=== PATIENT | female | born 1985 | race Caucasian/White ===

== ENCOUNTER → 2016-08-21 | Outpatient (REF) | payer BC | LOC: M SFHCWAGY 15:40 | PROVIDERS: ATTEND Nurse Practitioner Women's Health | DX: Z12.4 Encounter for screening for malignant neoplasm of cervix (principal) ==

== ENCOUNTER → 2016-10-13 | Outpatient (REF) | payer BC | LOC: M SFHCWAGY 15:23 | PROVIDERS: ATTEND Nurse Practitioner Women's Health | DX: N93.0 Postcoital and contact bleeding (principal); N94.10 Unspecified dyspareunia ==

== ENCOUNTER → 2016-11-26 | Outpatient (REF) | payer BC | LOC: M SFHCWAGY 13:45 | PROVIDERS: ATTEND Nurse Practitioner Family | DX: N89.8 Other specified noninflammatory disorders of vagina (principal) ==

== ENCOUNTER → 2017-03-26 | Outpatient (REF) | payer BC, SELFPAY | LOC: M LAB REF 08:34 | PROVIDERS: ATTEND Physician Assistant | DX: J02.9 Acute pharyngitis, unspecified (principal) ==

== ENCOUNTER → 2017-06-23 | Outpatient (REF) | payer BC ==
[2017-06-23 22:16] LABS: APPEARANCE, URINE CLOUDY (CLEAR); BACTERIA, URINE AUTO 3+ (NEGATIVE); BILIRUBIN, URINE AUTO NEGATIVE (NEGATIVE); BLOOD, URINE BLOOD NEGATIVE (NEGATIVE); COLOR, URINE AMBER (YELLOW); GLUCOSE, URINE (UA) AUTO NEGATIVE (NEGATIVE); KETONE, URINE AUTO NEGATIVE (NEGATIVE); LEUKOCYTE ESTERASE, URINE AUTO 2+ (NEGATIVE); MUCUS, URINE SMALL (NEGATIVE); NITRITE, URINE AUTO POSITIVE (NEGATIVE); PROTEIN, URINE AUTO 1+ mg/dL (NEGATIVE); RBC, URINE AUTO 5 /HPF (0-3); SPECIFIC GRAVITY URINE AUTO 1.027 (1.002-1.035); SQUAMOUS EPITHELIAL CELL UR AU 4 /HPF (0-6); WBC, URINE AUTO TNTC /HPF (0-3)
== END ==
LOC: M LAB REF 09:30
DX: N39.0 Urinary tract infection, site not specified (principal)
CPT/HCPCS: 81001

== ENCOUNTER → 2017-08-25 | Outpatient (REF) | payer BC | LOC: M SFHCWAGY 15:57 | DX: Z12.4 Encounter for screening for malignant neoplasm of cervix (principal) | CPT/HCPCS: G0123 ==

== ENCOUNTER 2017-12-22 12:29 | Emergency (ER) | payer BC ==
[2017-12-22] MEDS: NS 1,000 ML IV (13:21)
[2017-12-22 13:28] LABS: BASO % 0.5 % (0.0-1.0); EOS % 0.5 % (0.0-3.0); HEMATOCRIT 43.4 % (36.0-47.0); HEMOGLOBIN 14.8 g/dl (12.0-15.5); IMMATURE GRANULOCYTE % 0.3 % (0-3.0); LYMPH # 1.3 10^3/uL (1.5-4.5); LYMPH % 14.8 % (24.0-44.0); MEAN CORPUSCULAR HEMOGLOBIN 33.6 pg (27.0-33.0); MEAN CORPUSCULAR HGB CONC 34.1 g/dl (32.0-36.5); MEAN CORPUSCULAR VOLUME 98.6 fl (80.0-96.0); MONO # 0.8 10^3/uL (0.0-0.8); MONO % 9.7 % (0.0-5.0); NEUTROPHILS # 6.4 10^3/uL (1.8-7.7); NEUTROPHILS % 74.2 % (36.0-66.0); PLATELET COUNT, AUTOMATED 174 10^3/uL (150-450); RED CELL DISTRIBUTION WIDTH 11.8 % (11.5-14.5); WHITE BLOOD COUNT 8.6 10^3/uL (4.0-10.0)
[2017-12-22 13:38] LABS: KETONE, URINE AUTO RFX NEGATIVE (NEGATIVE); MUCUS, URINE RFX SMALL (NEGATIVE); NITRITE, URINE AUTO RFX NEGATIVE (NEGATIVE); RBC, URINE AUTO RFX 2 /HPF (0-3); SPECIFIC GRAVITY UR AUTO RFX 1.021 (1.002-1.035); SQUAM EPITHELIAL CELL UR AURFX 24 /HPF (0-6); WBC, URINE AUTO RFX 6 /HPF (0-3)
[2017-12-22 13:50] LABS: LEUKOCYTE ESTERASE UR AUTO RFX TRACE (NEGATIVE)
[2017-12-22 14:08] LABS: LACTIC ACID SEPSIS PROTOCOL 0.9 MMOL/L (0.4-2.0)
[2017-12-22 14:24] LABS: ALBUMIN 4.1 GM/DL (3.2-5.2); ALBUMIN/GLOBULIN RATIO 1.41 (1.00-1.93); ALKALINE PHOSPHATASE 56 U/L (45-117); ALT/SGPT 48 U/L (12-78); ANION GAP 8 MEQ/L (8-16); AST/SGOT 35 U/L (7-37); BLOOD UREA NITROGEN 10 MG/DL (7-18); CARBON DIOXIDE LEVEL 28 MEQ/L (21-32); CHLORIDE LEVEL 106 MEQ/L (98-107); GLOMERULAR FILTRATION RATE > 60.0 (>60); GLUCOSE, FASTING 70 MG/DL (70-100); HCG, SERUM QUANTITATIVE < 1.0 MIU/ML; POTASSIUM SERUM 4.5 MEQ/L (3.5-5.1); SODIUM LEVEL 142 MEQ/L (136-145)
[2017-12-22 15:05] LABS: CONTROL LINE UCG INT CTR LINE PRESENT; URINE PREG TEST NEGATIVE (NEGATIVE)
[2017-12-22] MEDS: EXCEDRIN MIGRAINE TABLET PO (15:48)
[2017-12-22 16:19] LABS: CHLAMYDIA DNA AMPLIFICATION NEGATIVE (NEGATIVE); GC DNA AMPLIFICATION NEGATIVE (NEGATIVE)
== END 2017-12-22 16:27 | disposition home or self-care (01) ==
LOC: M ED 12:29
DX: J02.8 Acute pharyngitis due to other specified organisms (principal)
CPT/HCPCS: 76856

== ENCOUNTER → 2018-03-03 | Outpatient (CLI) | payer BC ==
[2018-03-03 18:16] LABS: BASO % 0.4 % (0.0-1.0); EOS # 0.1 10^3/uL (0.0-0.50); EOS % 0.5 % (0.0-3.0); HEMOGLOBIN 13.2 g/dl (12.0-15.5); IMMATURE GRANULOCYTE % 0.5 % (0-3.0); LYMPH # 2.2 10^3/uL (1.5-4.5); LYMPH % 19.9 % (24.0-44.0); MEAN CORPUSCULAR HGB CONC 33.8 g/dl (32.0-36.5); MEAN CORPUSCULAR VOLUME 97.5 fl (80.0-96.0); MONO # 0.8 10^3/uL (0.0-0.8); MONO % 7.5 % (0.0-5.0); NEUTROPHILS # 7.9 10^3/uL (1.8-7.7); NEUTROPHILS % 71.2 % (36.0-66.0); PLATELET COUNT, AUTOMATED 197 10^3/uL (150-450); RED CELL DISTRIBUTION WIDTH 11.5 % (11.5-14.5); WHITE BLOOD COUNT 11.1 10^3/uL (4.0-10.0)
[2018-03-03 19:42] LABS: CHLAMYDIA DNA AMPLIFICATION NEGATIVE (NEGATIVE); GC DNA AMPLIFICATION NEGATIVE (NEGATIVE)
[2018-03-05 11:17] LABS: HBsAg Prenatal NEGATIVE (NEGATIVE); HIV 1&2 SCREEN CENTAUR NEGATIVE (NEGATIVE); RUBELLA IgG QUALITATIVE IMMUNE (IMMUNE)
[2018-03-05 11:17] LABS: HEPATITIS C VIRUS ABY INDEX 0.1 INDEX (<0.8)
== END ==
LOC: M SMT 15:12
DX: Z34.81 Encounter for supervision of other normal pregnancy, first trimester (principal); Z3A.08 8 weeks gestation of pregnancy
CPT/HCPCS: 86762

== ENCOUNTER → 2018-03-15 | Outpatient (CLI) | payer BC | LOC: M SMT 15:45 | DX: Z36.89 Encounter for other specified antenatal screening (principal) | CPT/HCPCS: 36415 ==

== ENCOUNTER → 2018-03-31 | Outpatient (REF) | payer BC ==
[~2018-03-31] MED LIST: CIPR-249 PO; METR70GEL
== END ==
LOC: M LAB REF 17:08
PROVIDERS: ATTEND Advanced Practice Midwife
DX: Z34.81 Encounter for supervision of other normal pregnancy, first trimester (principal)

== ENCOUNTER → 2018-04-08 | Outpatient (REF) | payer BC | LOC: M LAB REF 16:24 | PROVIDERS: ATTEND Physician Assistant | DX: J06.9 Acute upper respiratory infection, unspecified (principal) ==

== ENCOUNTER → 2018-05-10 | Outpatient (CLI) | payer BC ==
--- NOTE | 2018-05-11 04:34 | REP ---
Clinical: Anatomical evaluation. Comparison: None . Findings: Examination demonstrates a single live intrauterine in variable presentation. motion is identified by technologist. Placenta is noted anterior and grade zero without evidence for placenta previa or abruption. Amniotic fluid volume is normal. Cervix measures 4.2 cm in length and appears closed. No evidence for nuchal cord. Gestational age by LMP 18 weeks 1 day with BRONWYN 10/10/2018 . Gestational age by current measurements 18 weeks 3-day with BRONWYN 10/08/2018 . FHR equals 157 beats per minute. BPD 4.2 cm 18 weeks 5-day HC 15.5 cm 18 weeks 3-day AC 12.9 cm 18 weeks 3 days FL 2.8 cm 18 weeks 3-day HL 2.7 cm 18 weeks 4 days HC/AC ratio 1.20 Estimated weight 241 grams ( 61st percentile). Anatomical assessment demonstrates normal structures including cranium, choroid plexus, cavum, cerebellum/posterior fossa, facial features, lungs, diaphragm, stomach, cord insertion/three-vessel cord, kidneys/bladder, spine, and extremities. Impression: Single live intrauterine in variable presentation demonstrating appropriate interval growth. Limited evaluation of the heart/ventricular outflow tracts noted. Remainder of the anatomical assessment is complete and normal. Electronically Signed by Michael Stiles MD 05/11/2018 04:25 A
== END ==
LOC: M RAD 16:02
PROVIDERS: ATTEND Advanced Practice Midwife
DX: Z34.82 Encounter for supervision of other normal pregnancy, second trimester (principal)

== ENCOUNTER → 2018-06-14 | Outpatient (CLI) | payer BC ==
--- NOTE | 2018-06-15 02:57 | REP ---
Clinical: Anatomical evaluation. Comparison: 05/10/2018 . Findings: Examination demonstrates a single live intrauterine in cephalic presentation. motion is identified by technologist. Placenta is noted anterior and grade grade zero without evidence for placenta previa or abruption. Amniotic fluid volume is normal. Cervix measures 4.2 cm in length and appears closed. No evidence for nuchal cord. Gestational age by LMP 23 weeks 1 day with BRONWYN 10/10/2018 . Gestational age by current measurements 23 weeks 1 day with BRONWYN 10/10/2018 . FHR equals 150 beats per minute. BPD 5.6 cm 23 weeks 1 day HC 20.9 cm 23 weeks 0 days AC 17.5 cm 22 weeks 3 days FL 4.2 cm 23 weeks 5 days HL 3.9 cm 23 weeks 6 days HC/AC ratio 1.20 Estimated weight 553 grams ( 42nd percentile). Anatomical assessment demonstrates normal structures including four-chamber heart/ventricular outflow tracts and stomach. Impression: Single live intrauterine in cephalic presentation demonstrating appropriate interval growth. In conjunction with prior examination anatomical assessment is complete and normal. Electronically Signed by Michael Stiles MD 06/15/2018 02:49 A
== END ==
LOC: M RAD 16:34
PROVIDERS: ATTEND Specialist
DX: Z34.80 Encounter for supervision of other normal pregnancy, unspecified trimester (principal); Z3A.23 23 weeks gestation of pregnancy

== ENCOUNTER → 2018-07-12 | Outpatient (CLI) | payer BC ==
[2018-07-12 13:40] LABS: BASO # 0.1 10^3/uL (0.0-0.2); BASO % 0.6 % (0.0-1.0); EOS # 0.1 10^3/uL (0.0-0.50); EOS % 0.5 % (0.0-3.0); HEMATOCRIT 36.9 % (36.0-47.0); HEMOGLOBIN 12.5 g/dl (12.0-15.5); LYMPH # 1.8 10^3/uL (1.5-4.5); LYMPH % 16.8 % (24.0-44.0); MEAN CORPUSCULAR HEMOGLOBIN 34.2 pg (27.0-33.0); MEAN CORPUSCULAR HGB CONC 33.9 g/dl (32.0-36.5); MEAN CORPUSCULAR VOLUME 101.1 fl (80.0-96.0); MONO # 0.5 10^3/uL (0.0-0.8); MONO % 4.9 % (0.0-5.0); NEUTROPHILS % 74.6 % (36.0-66.0); PLATELET COUNT, AUTOMATED 145 10^3/uL (150-450); RED BLOOD COUNT 3.65 10^6/uL (4.00-5.40); WHITE BLOOD COUNT 10.7 10^3/uL (4.0-10.0)
== END ==
LOC: M LAB 12:11
PROVIDERS: ATTEND Advanced Practice Midwife
DX: Z34.82 Encounter for supervision of other normal pregnancy, second trimester (principal); Z3A.00 Weeks of gestation of pregnancy not specified

== ENCOUNTER → 2018-08-19 | Outpatient (REF) | payer BC, OTHER ==
[~2018-08-19] MED LIST changes: +MULTTAB20 PO; +ZANT150T40 PO
== END ==
LOC: M LAB REF 12:29
PROVIDERS: ATTEND Physician Assistant
DX: J02.9 Acute pharyngitis, unspecified (principal)

== ENCOUNTER → 2018-09-06 | Outpatient (REF) | payer OTHER ==
[~2018-09-06] MED LIST changes: -ZANT150T40 PO; +ZANTTAB PO
== END ==
LOC: M LAB REF 17:05
PROVIDERS: ATTEND Advanced Practice Midwife
DX: O26.893 Other specified pregnancy related conditions, third trimester (principal); Z3A.00 Weeks of gestation of pregnancy not specified

== ENCOUNTER → 2018-09-15 | Outpatient (REF) | payer BC, OTHER | LOC: M LAB REF 16:57 | PROVIDERS: ATTEND Advanced Practice Midwife | DX: Z34.83 Encounter for supervision of other normal pregnancy, third trimester (principal); Z3A.00 Weeks of gestation of pregnancy not specified ==

== ENCOUNTER → 2018-09-23 | Outpatient (CLI) | payer OTHER ==
[~2018-09-23] MED LIST changes: -MULTTAB20 PO; -ZANTTAB PO
== END ==
LOC: M LAB 14:01
PROVIDERS: ATTEND Advanced Practice Midwife
DX: Z34.83 Encounter for supervision of other normal pregnancy, third trimester (principal); Z3A.00 Weeks of gestation of pregnancy not specified

== ENCOUNTER 2018-10-03 06:58 | Inpatient (IN) | payer OTHER ==
[~2018-10-03] VITALS: Ht 162.6 cm; Wt 77.7 kg
[2018-10-03] VITALS (37 sets, daily range): BP systolic 94–165; BP diastolic 50–100
[2018-10-03] MEDS ORDERED: MULTTAB20 PO (07:20)
[2018-10-03] MEDS ORDERED: ZANT150T40 PO (07:20)
[2018-10-03] MEDS ORDERED: LACTATED RINGER'S 1000 ML IV STA (07:54)
--- NOTE | 2018-10-03 08:05 | NUR ---
L&D H&P HPI: 33 year old at 39+ weeks estimated gestation. Expected date of confinement: 10/10/18. dated by LMP c/w first TM US. Presents today for scheduled elective IOL. Denies vaginal bleeding, loss of fluid, or uterine contractions. Reports regular movement. course uncomplicated thus far. labs: Blood type O, antibody screen negative, rubella immune, VDRL nonreactive , hepatitis B surface antigen negative, HIV negative, hepatitis C antibody negative, GC/CT negative, aneuploidy/maternal serum screening: Low risk XX (Panorama), 1 hour glucose challenge test: 113, GBS negative. Vaccinations: Tdap 08/04/18 Radiology/OB US: no anomalies or placental abnormalities detected. History Past medical history: none Surgical history: LEEP, Right shoulder/ortho Medications: PNV Allergies: Sulfa MEDICAL INSTRUCTOR history: H/o dysplasia, Last Pap NILM, no other STI/gHSV OB history: G1: 05/2009, 40+2 weeks, IOL Social history: no t/e/d (former smoker) Family history: DM, cardiovascular disease Objective Vitals: Normotensive, normal heart rate, afebrile Heart: Regular rate and rhythm. No murmurs, rubs or gallops. Lungs: Clear to auscultation bilaterally. No wheezes, crackles, rales or rhonchi. Abdomen: Uterine fundal height consistent with dates. No guarding or rebound tenderness. Extremities: No clubbing, cyanosis or edema. Normal deep tendon reflexes. Sterile vaginal exam: 2-3 cm, 75 %effacement, -3 station, cephalic, intact External monitoring: heart rate category 1 Tocodynamometer: contractions occurring irregularly Assessment/Plan 33 year old at 39+ weeks gestation. Diagnosis: Full term gestation, elective IOL. Favorable cervix. Reassuring and maternal status. -Admit to labor and delivery with routine labs and orders -External monitoring and tocodynamometer -Pediatrics and anesthesia consultations as needed. -Pitocin IOL. Dr. Aniceto Tejada, DO, FACOG
[2018-10-03 08:08] LABS: HEMATOCRIT 39.9 % (36.0-47.0); HEMOGLOBIN 13.6 g/dl (12.0-15.5); MEAN CORPUSCULAR HEMOGLOBIN 34.4 pg (27.0-33.0); MEAN CORPUSCULAR HGB CONC 34.1 g/dl (32.0-36.5); PLATELET COUNT, AUTOMATED 131 10^3/uL (150-450); RED BLOOD COUNT 3.95 10^6/uL (4.00-5.40); WHITE BLOOD COUNT 10.6 10^3/uL (4.0-10.0)
[2018-10-03] MEDS: LR 1,000 ML IV SCH ×2 (08:14→15:19)
[2018-10-03] MEDS ORDERED: OXYTOCIN DRIP 30 UNITS in APPROPRIATE DILUENT 1 EA IV SCH ×2 (08:30→19:27)
[2018-10-03] MEDS ORDERED: BUTORPHANOL 2 MG/ML INJ (J0595) As Ordered ONE (15:10)
[2018-10-03] MEDS ORDERED: PROMETHAZINE INJ 25 MG/ML VIAL (J2550) As Ordered ONE (15:11)
[2018-10-03] MEDS ORDERED: BUTORPHANOL 2 MG/ML INJ (J0595) IV ONE (15:15)
[2018-10-03] MEDS ORDERED: PROMETHAZINE INJ 25 MG/ML VIAL (J2550) IV ONE (15:15)
[2018-10-03] MEDS ORDERED: FENTANYL 2MCG/ML ROPIVACAINE 0.2% IN 0.9% NACL 100ML IVBAG As Ordered ONE (16:51)
[2018-10-03] MEDS ORDERED: REFRIGERATOR IV KEYS XX PRN (18:15)
[2018-10-03] MEDS ORDERED: EPIDURAL/PCA KEYS XX PRN (18:15)
[2018-10-03] MEDS ORDERED: EPIDURAL COMMENT XX SCH (18:15)
[2018-10-03] MEDS ORDERED: NALOXONE INJ 0.4 MG/1 ML VIAL (J2310) IV PRN (18:15)
[2018-10-03] MEDS ORDERED: FENTANYL/ROPIVACAINE/NACL BAG 100 ML EPIDURAL SCH (18:15)
[2018-10-03] MEDS ORDERED: LACTATED RINGER'S 1000 ML IV PRN (18:15)
[2018-10-03] MEDS ORDERED: ePHEDrine SULFATE 25 MG/5 ML(5MG/ML) SYRINGE IV PRN (18:15)
[2018-10-03] MEDS ORDERED: ONDANSETRON 4MG/2ML VIAL (J2405) IV PRN ×2 (18:15→19:30)
[2018-10-03] MEDS ORDERED: diphenhydrAMINE INJ 50MG/ML VIAL (J1200) IV PRN (18:15)
[2018-10-03] MEDS ORDERED: LR 1,000 ML IV SCH (19:27)
[2018-10-03] MEDS ORDERED: IBUPROFEN 600 MG TAB PO PRN (19:30)
[2018-10-03] MEDS ORDERED: ACETAMINOPHEN TAB 650MG DOSE (2X325MG) PO PRN (19:30)
[2018-10-03] MEDS ORDERED: PROMETHAZINE 25 MG TAB PO PRN (19:30)
[2018-10-03] MEDS ORDERED: RHOGAM 300 MCG (1500 IU) INJ (J2790) IM SCH (19:30)
[2018-10-03] MEDS ORDERED: DIBUCAINE 1% OINTMENT 30GM TOP PRN (19:30)
[2018-10-03] MEDS ORDERED: MEASLES,MUMPS,RUBELLA VACCINE INJ (MMR-II) (90707) SC SCH (19:30)
[2018-10-03] MEDS ORDERED: DOCUSATE SODIUM 100 MG CAP PO PRN (19:30)
--- NOTE | 2018-10-03 19:32 | NUR ---
Delivery note Spontaneous vaginal delivery Estimated gestational age at delivery: 39+0 weeks The active phase and second stage of labor progressed in normal fashion with epidural anesthesia. Patient received Pitocin labor augmentation. The head delivered left occiput anterior and restituted left occiput transverse. No nuchal cord was noted. The anterior shoulder delivered with gentle downward guidance and the remainder of the body delivered with ease. Cord clamping was delayed for approximately 1 minute after delivery. After doubly clamping the cord, I allowed the FOB to cut the cord. The was placed on the patient's chest for immediate bonding. [place] data: Apgars 8 and 9. weight 3450 grams 7 pounds, 10 ounces. Time of delivery: 1911. Sex: Female. Shae. The third stage of labor was actively managed with a bolus of IV Pitocin (30 units in 500 mL of normal saline). The placenta delivered completely intact with no missing cotyledons at 1918. A three-vessel cord with a central insertion was noted. After delivery of the placenta, the uterine fundus was approximately 2 cm below the umbilicus and firm. IV Pitocin was continued to maintain uterine tone. A normal, low level of uterine bleeding was noted. The cervix, vagina, vulva and perineum were inspected for lacerations. No laceration was noted. Excellent hemostasis was noted. Estimated blood loss: 300mL. All sponges, needles, and instruments were accounted for per [facility] department protocol. Aniceto Tejada D.O., F.Ivy.Rosa.
[2018-10-04 06:00] VITALS: BP 105/73
[2018-10-04] MEDS: ACETAMINOPHEN 500 MG TAB PO PRN ×2 (06:06→13:47)
[2018-10-04] MEDS: IBUPROFEN 800 MG TAB PO PRN ×2 (08:08→20:02)
--- NOTE | 2018-10-04 08:21 | NUR ---
Day 1 Status post , uncomplicated Subjective Pain is well controlled. Lochia decreasing and minimal. Voiding spontaneously. Tolerating a regular diet. Ambulating without any assistance. Denies any subjective fever/chills/nausea/vomiting/headache/visual changes/shortness of breath/chest pain. Breast feeding. Objective Vitals: Normotensive, normal heart rate, afebrile, adequate urine output. Heart: regular, rate, and rhythm. no murmurs/gallops/rubs Lungs: clear to auscultation bilaterally, no wheezes/crackles/rales/ronchi Abd: soft, nontender, nondistended, uterine fundus is 2cm below umbilicus and firm Ext: no significant edema, nontender, negative Ankur's bilaterally. Assessment/Plan: day 1. Recovering well. Hemodynamically stable, afebrile, good pain control. -Routine care -Discharge to home tomorrow. -Routine infectious, fever, pain, and bleeding precautions reviewed Warren Sandra.O., F.A.C.O.G
[2018-10-04] MEDS ORDERED: PRENATAL VITAMINS CHEWABLE TABLET PO SCH (09:00)
== END 2018-10-04 21:25 | disposition home or self-care (01) | DRG 560 ==
LOC: M LDI 06:58 → M OBS 22:00
PROVIDERS: ADMIT Obstetrics & Gynecology; ATTEND Obstetrics & Gynecology
PROC: 10E0XZZ Delivery of Products of Conception, External Approach (ICD-10-PCS; principal; 2018-10-03)
PROC: 3E033VJ Introduction of Other Hormone into Peripheral Vein, Percutaneous Approach (ICD-10-PCS; 2018-10-03)
DX: O80 Encounter for full-term uncomplicated delivery (principal); Z3A.39 39 weeks gestation of pregnancy; Z37.0 Single live birth

== ENCOUNTER → 2019-01-26 | Outpatient (REF) | payer OTHER, MEDICAID ==
[~2019-01-26] MED LIST changes: +MULTTAB20 PO; +PREVTAB2 PO; +ZANT150T40 PO
[2019-01-26 17:03] LABS: APPEARANCE, URINE MANUAL HAZY (CLEAR); BILIRUBIN, URINE MANUAL OBSCURED (NEGATIVE); BLOOD URINE MANUAL OBSCURED (NEGATIVE); COLOR, URINE MANUAL ORANGE (YELLOW); GLUCOSE, URINE (UA) MANUAL OBSCURED mg/dL (NEGATIVE); KETONE, URINE MANUAL OBSCURED mg/dL (NEGATIVE); LEUKOCYTE ESTERASE, URINE MAN OBSCURED (NEGATIVE); NITRITE, URINE MANUAL OBSCURED (NEGATIVE); PROTEIN, URINE MANUAL OBSCURED mg/dL (NEGATIVE); UROBILINOGEN, URINE MANUAL OBSCURED mg/dl (NORMAL)
[2019-01-26 17:04] LABS: BACTERIA, URINE MOD AMOUNT; HYALINE CAST, URINE NONE SEEN /lpf (0-1); SQUAMOUS EPITHELIAL CELL URINE LARGE AMOUNT /hpf (SMALL AMT); WBC, URINE TNTC /hpf (0-3)
== END ==
LOC: M LAB REF 16:26
PROVIDERS: ATTEND Physician Assistant
DX: N39.0 Urinary tract infection, site not specified (principal)

== ENCOUNTER 2019-02-11 08:05 | Day surgery (SDC) | payer OTHER ==
[~2019-02-11] VITALS: Ht 162.6 cm; Wt 64.9 kg
[~2019-02-11 08:05] MED LIST changes: +LR 1,000 ML IV ONE
[2019-02-11 08:32] LABS: HEMATOCRIT 46.4 % (36.0-47.0); HEMOGLOBIN 15.5 g/dl (12.0-15.5); MEAN CORPUSCULAR HEMOGLOBIN 33.5 pg (27.0-33.0); MEAN CORPUSCULAR HGB CONC 33.4 g/dl (32.0-36.5); MEAN CORPUSCULAR VOLUME 100.4 fl (80.0-96.0); PLATELET COUNT, AUTOMATED 199 10^3/uL (150-450); RED BLOOD COUNT 4.62 10^6/uL (4.00-5.40); WHITE BLOOD COUNT 5.9 10^3/uL (4.0-10.0)
[2019-02-11 08:41] LABS: HCG, SERUM QUALITATIVE NEGATIVE (NEGATIVE)
[2019-02-11] MEDS ORDERED: dexameTHASONE 4 MG/ML 1ML VIAL (J1100) As Ordered ONE (09:26)
[2019-02-11] MEDS ORDERED: KETOROLAC 60 MG/2 ML VIAL (J1885) As Ordered ONE (09:26)
[2019-02-11] MEDS ORDERED: PROPOFOL 200 MG/20 ML VIAL As Ordered ONE (09:26)
[2019-02-11] MEDS ORDERED: LIDOCAINE 2% INJ 100 MG/5 ML SDV (FOR ANES.) As Ordered ONE (09:26)
[2019-02-11] MEDS ORDERED: ONDANSETRON 4MG/2ML VIAL (J2405) As Ordered ONE (09:27)
[2019-02-11] MEDS ORDERED: ROCURONIUM BROMIDE 50 MG/5 ML VIAL As Ordered ONE (09:27)
[2019-02-11] MEDS ORDERED: BUPIVACAINE HCL 0.25% 30 ML VIAL As Ordered ONE (11:27)
[2019-02-11] MEDS ORDERED: MIDAZOLAM INJ 2 MG/2 ML VIAL (J2250) As Ordered ONE (11:36)
[2019-02-11] MEDS ORDERED: fentaNYL 250 MCG/5 ML INJECTION (J3010) As Ordered ONE (11:36)
[2019-02-11] MEDS ORDERED: METOCLOPRAMIDE INJ 10MG/2ML VIAL (J2765) As Ordered ONE (11:57)
[2019-02-11] MEDS ORDERED: SUGAMMADEX SODIUM 500 MG/5 ML VIAL (BRIDION) As Ordered ONE (12:05)
[2019-02-11] MEDS ORDERED: GLYCOPYRROLATE INJ 0.2 MG/ML 2 ML VIAL As Ordered ONE (12:30)
[2019-02-11] MEDS ORDERED: KETOROLAC 30 MG/ML VIAL (J1885) IV PRN (13:30)
[2019-02-11] MEDS ORDERED: fentaNYL 100 MCG/2 ML INJECTION (J3010) IV PRN (13:30)
[2019-02-11] MEDS ORDERED: PERCOCET 5MG/325MG TAB PO PRN (13:30)
[2019-02-11] MEDS ORDERED: LR 1,000 ML IV SCH ×2 (13:30→13:45)
[2019-02-11] MEDS ORDERED: PERCOCET PO (13:32)
[2019-02-11] MEDS ORDERED: IBUP80TA PO (13:32)
[2019-02-11 13:55] VITALS: BP 128/85
--- NOTE | 2019-02-11 16:48 | RO ---
DATE OF PROCEDURE: 02/11/2019 PREOPERATIVE DIAGNOSIS: Satisfied parity. POSTOPERATIVE DIAGNOSIS: Satisfied parity. PROCEDURE PERFORMED: Laparoscopic opportunistic bilateral salpingectomy. SURGEON: Aniceto Tejada DO FOLDER HAND: None. ANESTHESIA TYPE: General endotracheal. SPECIMENS SENT TO PATHOLOGY: Bilateral fallopian tubes. ESTIMATED BLOOD LOSS: 10 mL. FLUIDS REPLACED: 500 mL lactated Ringer's IV. DRAINS: Lindsey catheter, 400 mL urine output. COMPLICATIONS: None. PREOPERATIVE ANTIBIOTICS: None indicated. INTRAOPERATIVE FINDINGS: Normal uterus and bilateral adnexa, ovaries, appendix and liver edge and gallbladder. INDICATION: The patient is a 34-year-old 2, para 2, with 100% satisfied parity requesting permanent tubal sterilization. She has declined all other contraceptive options. DESCRIPTION OF PROCEDURE: The patient was counseled and consented on the risks, benefits, indications, and alternatives of the procedure. Informed consent was obtained. She was taken to the operating room with an IV running and placed on the operating table in the dorsal supine position. General anesthesia was administered, and the airway secured without any difficulty. She was placed in the low lithotomy position. She was prepared and draped in a normal sterile fashion. A time-out was performed per protocol. Attention was turned to the pelvis. A Lindsey catheter was placed under sterile conditions. A sterile speculum placed with good visualization of the cervix. The anterior lip of the cervix was grasped with a single-tooth tenaculum and downward traction was applied. The cervix was sequentially dilated with Vish dilators. The uterus was sounded to 8 cm. The ZUMI uterine manipulator was placed without any difficulty. Single-tooth tenaculum was removed and the tenaculum sites were noted be hemostatic. The sterile speculum was removed. A glove switch was performed. Attention was turned to the abdomen. 5 mL of 0.25% Marcaine were injected into the umbilicus and a 5 mm umbilical incision was made with the 11 blade and through this incision a Veress needle was placed into the intraperitoneal cavity. Intraperitoneal placement was confirmed with ease of flow of normal saline, negative return on aspiration and positive drop test. The opening pressure upon insufflation was 2 mmHg. The abdomen was insufflated with 2 liters of gas, the Veress needle was removed. The size 5 mm Xcel laparoscopic cannula/trocar was inserted into the intraperitoneal cavity without any difficulty. No incidental bleeding or injury was noted. She was placed in the steep Trendelenburg position. Two additional laparoscopic port sites were placed through 5 mm incisions in the left lower abdomen. The cannula/trocars were placed under direct laparoscopic visualization without any difficulty. No incidental bleeding or injury was noted. First, attention was turned to the right fallopian tube. The right fallopian tube was followed out to the fimbriated end then grasped at the fimbriated end and elevated. The underlying mesosalpinx was sequentially clamped, coagulated and transected with the 5 mm LigaSure device until the level of the cornu was reached. At the level of the cornu, the fallopian tube was clamped, coagulated and transected thus amputating the right fallopian tube. The right fallopian tube was brought through the cannula without any difficulty and sent to pathology for permanent section. In a similar fashion, the left fallopian tube was followed out to the fimbriated end. The fimbriated end was grasped and elevated. The underlying mesosalpinx/broad ligament was sequentially clamped, coagulated and transected with the 5 mm LigaSure device until the level of cornu was reached. At the level of cornu, the left fallopian tube was cross clamped, coagulated and transected thus amputating the left fallopian tube. The left fallopian tube was brought through the cannula without any difficulty and sent to pathology for permanent section. Inspection of both the left and right surgical sites were noted to be completely hemostatic. The gas was released from the abdomen. The patient was taken out of the Trendelenburg position. Again, excellent hemostasis was noted. Once the gas was released from the abdomen, the cannulas were removed. The skin incisions were closed with #4-0 Monocryl in a subcuticular fashion, and reinforced with Dermabond. The instruments were all removed from the vagina, including the ZUMI uterine manipulator. Minimal vaginal bleeding was noted. The patient tolerated the entire procedure very well. The sponge, needle and instrument counts were correct per protocol, and she was transferred to the post-anesthesia care unit (PACU) in good and stable condition. JESSICA
== END 2019-02-11 14:08 | disposition home or self-care (01) ==
LOC: M SDC 08:05
PROVIDERS: ATTEND Obstetrics & Gynecology
DX: Z30.2 Encounter for sterilization (principal); N39.0 Urinary tract infection, site not specified; Z88.2 Allergy status to sulfonamides; Z87.891 Personal history of nicotine dependence
CPT/HCPCS: 36415; 58661; 84703; 85027; 86850; 86900; 86901; 88302; J1100; J1885; J2250; J2405; J2765; J3010

== ENCOUNTER → 2019-12-22 | Outpatient (REF) | payer OTHER ==
[~2019-12-22] MED LIST changes: +IBUP80TA PO; -LR 1,000 ML IV ONE; +PERCOCET PO
== END ==
LOC: M LAB REF 16:39
PROVIDERS: ATTEND Physician Assistant
DX: D23.5 Other benign neoplasm of skin of trunk (principal)

== ENCOUNTER → 2020-03-12 | Outpatient (CLI) | payer OTHER ==
[2020-03-12 20:31] LABS: BASO % 0.4 % (0.0-1.0); EOS # 0.1 10^3/uL (0.0-0.5); EOS % 0.8 % (0.0-3.0); HEMATOCRIT 42.6 % (36.0-47.0); LYMPH # 3.2 10^3/uL (1.5-5.0); LYMPH % 32.6 % (24.0-44.0); MEAN CORPUSCULAR HEMOGLOBIN 32.5 pg (27.0-33.0); MEAN CORPUSCULAR HGB CONC 32.9 g/dl (32.0-36.5); MEAN CORPUSCULAR VOLUME 98.8 fl (80.0-96.0); MONO # 0.9 10^3/uL (0.0-0.8); MONO % 9.2 % (0.0-5.0); NEUTROPHILS # 5.6 10^3/uL (1.5-8.5); NEUTROPHILS % 56.6 % (36.0-66.0); PLATELET COUNT, AUTOMATED 215 10^3/uL (150-450); RED BLOOD COUNT 4.31 10^6/uL (4.00-5.40); WHITE BLOOD COUNT 9.9 10^3/uL (4.0-10.0)
[2020-03-12 20:47] LABS: ALBUMIN 3.9 GM/DL (3.2-5.2); ALT/SGPT 25 U/L (12-78); BLOOD UREA NITROGEN 13 MG/DL (7-18); CALCIUM LEVEL 8.8 MG/DL (8.5-10.1); CARBON DIOXIDE LEVEL 29 MEQ/L (21-32); CHLORIDE LEVEL 108 MEQ/L (98-107); CREATININE FOR GFR 0.86 MG/DL (0.55-1.30); FREE T4 0.89 NG/DL (0.76-1.46); GLOMERULAR FILTRATION RATE > 60.0 (>60); GLUCOSE, FASTING 83 MG/DL (70-100); IRON (FE) 165 UG/DL (50-170); PERCENT SATURATION 53.7 % (13.2-45.0); SODIUM LEVEL 139 MEQ/L (136-145); TOTAL 25(OH) VITAMIN D 11.8 NG/ML (30.0-100.0); TOTAL IRON BINDING CAPACITY 307 UG/DL (250-450); TOTAL PROTEIN 7.1 GM/DL (6.4-8.2)
== END ==
LOC: M WUC 15:48
PROVIDERS: ATTEND Nurse Practitioner Family
DX: R53.83 Other fatigue (principal)

== ENCOUNTER → 2021-07-30 | Outpatient (REF) | payer OTHER | LOC: M SFHCWAGY 17:33 | PROVIDERS: ATTEND Obstetrics & Gynecology | DX: Z12.4 Encounter for screening for malignant neoplasm of cervix (principal) ==

== ENCOUNTER 2023-06-30 17:27 | Emergency (ER) | payer OTHER ==
[~2023-06-30] VITALS: Ht 162.6 cm; Wt 56.0 kg
[2023-06-30 17:29] VITALS: TEMP 98.1
[2023-06-30] MEDS: MORPHINE 4 MG/ML 1ML VIAL IV PRN (17:55)
[2023-06-30] MEDS: KETOROLAC 30 MG/ML 1ML VIAL IV ONE (19:42)
[2023-06-30] MEDS ORDERED: BACI500O8 TOP (20:06)
[2023-06-30] MEDS ORDERED: IBUP80TA PO (20:06)
[2023-06-30] MEDS: BACITRACIN OINTMENT 30GM TUBE TOP ONE (20:20)
[2023-06-30 20:30] VITALS: BP 129/84; O2SAT 99
== END 2023-06-30 20:43 | disposition home or self-care (01) ==
LOC: M ED 17:27
DX: T20.26XA Burn of second degree of forehead and cheek, initial encounter (principal); T31.0 Burns involving less than 10% of body surface; X10.2XXA Contact with fats and cooking oils, initial encounter; Y92.009 Unspecified place in unspecified non-institutional (private) residence as the place of occurrence of the external cause; Y93.G3 Activity, cooking and baking; Y99.9 Unspecified external cause status; F90.9 Attention-deficit hyperactivity disorder, unspecified type; Z79.3 Long term (current) use of hormonal contraceptives; Z88.2 Allergy status to sulfonamides
CPT/HCPCS: 96374; 96375; 99284; J1885

== ENCOUNTER → 2024-04-21 | Outpatient (CLI) | payer OTHER ==
[~2024-04-21] MED LIST changes: +BACI500O8 TOP
== END ==
LOC: M PLAIMG 08:36
PROVIDERS: ATTEND Orthopaedic Surgery
DX: M25.511 Pain in right shoulder (principal); M19.011 Primary osteoarthritis, right shoulder; M75.01 Adhesive capsulitis of right shoulder